=== PATIENT | female | born 1940 | race Caucasian/White ===

== ENCOUNTER → 2016-12-26 | Outpatient (CLI) | payer MEDICARE, MEDICAID | END | disposition home or self-care (01) | LOC: CFH 08:08 | PROVIDERS: ATTEND Internal Medicine | DX: K80.80 Other cholelithiasis without obstruction (principal); J32.0 Chronic maxillary sinusitis | CPT/HCPCS: 70551; 76700 ==

== ENCOUNTER → 2018-09-05 | Outpatient (CLI) | payer MEDICARE, MEDICAID | END | disposition home or self-care (01) | LOC: CFH 09:29 | PROVIDERS: ATTEND Internal Medicine | DX: K80.20 Calculus of gallbladder without cholecystitis without obstruction (principal); K86.89 Other specified diseases of pancreas; K82.8 Other specified diseases of gallbladder | CPT/HCPCS: 76700 ==

== ENCOUNTER → 2018-09-21 | Outpatient (CLI) | payer MEDICARE, MEDICAID ==
[~2018-09-21] MED LIST: OMNIPAQUE 350 MG/ML, 100ML BOTTLE ONE
== END | disposition home or self-care (01) ==
LOC: CFH 10:08
PROVIDERS: ATTEND Internal Medicine
DX: K86.89 Other specified diseases of pancreas (principal)
CPT/HCPCS: 74170; Q9967

== ENCOUNTER 2019-10-03 09:01 | Day surgery (SDC) | payer MEDICARE, MEDICAID ==
[~2019-10-03] VITALS: Ht 157.5 cm; Wt 63.0 kg
[~2019-10-03 09:01] MED LIST changes: +HYDR-3245 PO; +IBUP-1223 PO; +META800T PO; -OMNIPAQUE 350 MG/ML, 100ML BOTTLE ONE; +TRAV5DRO EACHEYE
[2019-10-03] MEDS ORDERED: LACTATED RINGERS 1,000 ML IV SCH (09:23)
[2019-10-03] MEDS ORDERED: CHLORHEXIDINE 15 ML UDC MM ONE (09:23)
[2019-10-03 09:25] VITALS: BP 152/81
[2019-10-03] MEDS ORDERED: LIDOCAINE 1%-EPI 1:100K, 20ML ONE (09:25)
[2019-10-03] MEDS ORDERED: CHLORHEXIDINE 15 ML UDC ONE (09:31)
[2019-10-03] MEDS ORDERED: FENTANYL PF 100 MCG/2ML ONE ×2 (09:59→12:06)
[2019-10-03] MEDS ORDERED: HYDROmorphone 1 MG/ML, 1ML INJ IVPush PRN (11:00)
[2019-10-03] MEDS ORDERED: hydrALAzine 20 MG/ML, 1ML IV PRN (11:00)
[2019-10-03] MEDS ORDERED: LABETALOL 5MG/ML, 20ML IV PRN (11:00)
[2019-10-03] MEDS ORDERED: ALBUTEROL SULFATE 2.5 MG/3 ML NPPB PRN (11:00)
[2019-10-03] MEDS ORDERED: OXYcodone 5 MG/5 ML ORAL.SOL UDC PO PRN (11:00)
[2019-10-03] MEDS ORDERED: PROMETHAZINE 25 MG/ML, 1ML IVPush PRN (11:00)
[2019-10-03] MEDS ORDERED: MIDAZOLAM 1 MG/ML, 2ML IV PRN (11:00)
[2019-10-03] MEDS ORDERED: MEPERIDINE/PF 25MG/0.5ML IVPush PRN (11:00)
[2019-10-03] MEDS ORDERED: ACETAMINOPHEN 325 MG TABLET PO PRN (11:00)
[2019-10-03] MEDS ORDERED: IBUPROFEN 800 MG TABLET PO SCH (11:00)
[2019-10-03] MEDS ORDERED: HYDROcodone/APAP 10/325 MG TABLET PO PRN (11:00)
[2019-10-03] MEDS ORDERED: CEFAZOLIN 1,000 MG ONE (11:16)
[2019-10-03] MEDS ORDERED: PROPOFOL 10 MG/ML, 20ML ONE (11:16)
[2019-10-03] MEDS ORDERED: ONDANSETRON 2MG/ML, 2ML ONE (11:16)
[2019-10-03] MEDS ORDERED: DEXAMETHASONE 4 MG/ML, 1ML ONE (11:16)
[2019-10-03] MEDS ORDERED: KETOROLAC 30 MG/1 ML ONE (11:16)
[2019-10-03] MEDS ORDERED: LIDOCAINE-MPF 2% ,5ML ONE (11:16)
[2019-10-03] MEDS ORDERED: ACETAMINOPHEN 650 MG/20.3 ML UDC ONE (11:41)
[2019-10-03] MEDS ORDERED: OXYcodone 5 MG/5 ML ORAL.SOL UDC ONE (12:06)
[2019-10-03] MEDS: FENTANYL PF 100 MCG/2ML IV PRN ×2 (12:08→12:20)
[2019-10-03] MEDS ORDERED: TRAVOPROST OPHTH 0.004%, 2.5ML EACHEYE SCH (21:00)
== END 2019-10-03 16:25 | disposition home or self-care (01) ==
LOC: OUT 09:01
PROVIDERS: ATTEND Orthopaedic Surgery
DX: M23.221 Derangement of posterior horn of medial meniscus due to old tear or injury, right knee (principal); Z11.59 Encounter for screening for other viral diseases; M23.242 Derangement of anterior horn of lateral meniscus due to old tear or injury, left knee; M22.41 Chondromalacia patellae, right knee; I10 Essential (primary) hypertension; F11.90 Opioid use, unspecified, uncomplicated; Z98.890 Other specified postprocedural states; Z79.899 Other long term (current) drug therapy; Z82.49 Family history of ischemic heart disease and other diseases of the circulatory system
CPT/HCPCS: 29880; 87635; 93005; J0690; J1100; J1885; J2405; J2704; J3010; J3490; J7120